=== PATIENT | male | born 1985 | race Caucasian/White ===

== ENCOUNTER 2017-07-21 20:56 | Emergency (ER) | payer SELFPAY ==
[2017-07-21 21:51] LABS: BASOPHIL % 0.3 % (0-2); RED CELL DISTRIBUTION WIDTH 14.5 % (11.5-14.5)
[2017-07-21 21:54] LABS: CALCIUM 8.8 mg/dL (8.5-10.1); CARBON DIOXIDE 27.7 mmol/L (21-32); CHLORIDE SERUM 104 mmol/L (98-107); GFR1 > 60 mL/min; GLUCOSE SERUM 115 mg/dL (74-106); POTASSIUM SERUM 3.7 mmol/L (3.5-5.1); SODIUM SERUM 139 mmol/L (136-145)
[2017-07-21 21:58] LABS: ALBUMIN 3.9 g/dL (3.4-5.0); ALKALINE PHOSPHATASE 79 U/L (46-116); ALT/SGPT 16 U/L (16-63); AMYLASE 49 U/L (25-115); AST/SGOT 17 U/L (15-37); LIPASE 257 IU/L (73-393); TOTAL PROTEIN, SERUM 7.4 g/dL (6.4-8.2)
[2017-07-21 22:06] LABS: PLATELET COUNT 446 x10^3mcL (130-400)
[2017-07-21 22:59] VITALS: BP 117/64
== END 2017-07-21 22:59 | disposition home or self-care (01) ==
LOC: ED 20:56
PROVIDERS: Emergency Medicine
DX: K56.7 Ileus, unspecified (principal); K21.9 Gastro-esophageal reflux disease without esophagitis
CPT/HCPCS: 36415; 83880; J1885

== ENCOUNTER 2017-07-24 22:24 | Emergency (ER) | payer SELFPAY ==
[2017-07-25 00:06] LABS: CALCIUM 9.3 mg/dL (8.5-10.1); CARBON DIOXIDE 29.5 mmol/L (21-32); CHLORIDE SERUM 102 mmol/L (98-107); GFR1 > 60 mL/min; GLUCOSE SERUM 94 mg/dL (74-106); POTASSIUM SERUM 4.1 mmol/L (3.5-5.1); SODIUM SERUM 141 mmol/L (136-145)
[2017-07-25 00:10] LABS: ALBUMIN 3.9 g/dL (3.4-5.0); ALKALINE PHOSPHATASE 90 U/L (46-116); ALT/SGPT 15 U/L (16-63); AMYLASE 52 U/L (25-115); AST/SGOT 13 U/L (15-37); BILIRUBIN TOTAL 0.3 mg/dL (0.20-1.00); LIPASE 187 IU/L (73-393); TOTAL PROTEIN, SERUM 7.7 g/dL (6.4-8.2)
[2017-07-25 00:11] LABS: BASOPHIL % 1.1 % (0-2); PLATELET COUNT 371 x10^3mcL (130-400); RED CELL DISTRIBUTION WIDTH 14.3 % (11.5-14.5)
[2017-07-25 01:18] VITALS: BP 120/75
[2017-07-25 01:31] LABS: AMPHETAMINE QUAL UR NONE DETECTED (NEG <=1000)
== END 2017-07-25 01:18 | disposition home or self-care (01) ==
LOC: ED 22:24
PROVIDERS: Emergency Medicine
DX: K27.9 Peptic ulcer, site unspecified, unspecified as acute or chronic, without hemorrhage or perforation (principal); K21.9 Gastro-esophageal reflux disease without esophagitis
CPT/HCPCS: 83880; J2405; J3010; J3490; J7030; Q0092

== ENCOUNTER 2017-09-11 11:17 | Emergency (ER) | payer SELFPAY ==
[~2017-09-11] VITALS: Ht 170.2 cm; Wt 74.8 kg
[2017-09-11 11:36] VITALS: BP 116/60
== END 2017-09-11 15:02 | disposition home or self-care (01) ==
LOC: ED 11:17
DX: R10.13 Epigastric pain (principal)

== ENCOUNTER 2017-12-15 13:04 | Emergency (ER) | payer OTHER ==
[~2017-12-15] VITALS: Ht 170.2 cm; Wt 75.3 kg
[2017-12-15 13:17] VITALS: Ht 170.2 cm; Wt 75.3 kg
[2017-12-15 15:05] VITALS: BP 120/69
== END 2017-12-15 15:05 | disposition home or self-care (01) ==
LOC: ED 13:04
DX: M54.6 Pain in thoracic spine (principal)
CPT/HCPCS: J1200; J2270

== ENCOUNTER 2018-07-26 20:18 | Emergency (ER) | payer OTHER ==
[~2018-07-26] VITALS: Ht 172.7 cm; Wt 77.1 kg
[2018-07-26 21:00] VITALS: Ht 172.7 cm; Wt 77.1 kg
[2018-07-26 22:26] VITALS: BP 110/67
== END 2018-07-26 22:26 | disposition home or self-care (01) ==
LOC: ED 20:18
DX: H10.11 Acute atopic conjunctivitis, right eye (principal); K21.9 Gastro-esophageal reflux disease without esophagitis

== ENCOUNTER 2019-06-15 17:36 | Emergency (ER) | payer SELFPAY ==
[~2019-06-15] VITALS: Ht 172.7 cm; Wt 82.3 kg
[2019-06-15 17:41] VITALS: Ht 172.7 cm; Wt 82.3 kg
[2019-06-15 19:28] LABS: BASOPHIL % 0.5 % (0-2); PLATELET COUNT 358 x10^3mcL (130-400)
[2019-06-15 19:42] LABS: CALCIUM 9.1 mg/dL (8.5-10.1); CARBON DIOXIDE 24.9 mmol/L (21-32); CHLORIDE SERUM 102 mmol/L (98-107); CREATININE SERUM 1.1 mg/dL (0.7-1.3); GFR1 > 60 mL/min; GLUCOSE SERUM 91 mg/dL (74-106); POTASSIUM SERUM 3.8 mmol/L (3.5-5.1); SODIUM SERUM 140 mmol/L (136-145)
[2019-06-15 19:47] LABS: ALBUMIN 3.7 g/dL (3.4-5.0); ALKALINE PHOSPHATASE 64 U/L (46-116); ALT/SGPT 27 U/L (16-63); AST/SGOT 32 U/L (15-37); BILIRUBIN TOTAL 0.3 mg/dL (0.20-1.00)
[2019-06-15 21:43] VITALS: BP 119/81
== END 2019-06-15 21:43 | disposition home or self-care (01) ==
LOC: ED 17:36
PROVIDERS: Emergency Medicine
DX: S13.4XXA Sprain of ligaments of cervical spine, initial encounter (principal); S20.222A Contusion of left back wall of thorax, initial encounter; S20.221A Contusion of right back wall of thorax, initial encounter; S30.810A Abrasion of lower back and pelvis, initial encounter; K21.9 Gastro-esophageal reflux disease without esophagitis; M25.521 Pain in right elbow; V28.4XXA Motorcycle driver injured in noncollision transport accident in traffic accident, initial encounter; Y93.I9 Activity, other involving external motion; Y92.488 Other paved roadways as the place of occurrence of the external cause; Y99.8 Other external cause status
CPT/HCPCS: 72072; J1885; Q9967